=== PATIENT | female | born 1950 | race Caucasian/White ===

== ENCOUNTER 2022-10-04 11:56 | Day surgery (SDC) | payer BC, MEDICARE ==
[2022-09-26 12:08] LABS: BASOPHILS % (AUTO) 0.5 % (0-1); EOSINOPHILS % (AUTO) 0.7 % (0-6); LYMPHOCYTES # (AUTO) 1.3 X10'3 (1.1-4.8); LYMPHOCYTES % (AUTO) 21.8 % (21-51); MEAN CORPUSCULAR HEMOGLOBIN 30.6 PG (27.0-31.0); MEAN CORPUSCULAR HGB CONC 33.5 g/dL (33.0-36.5); MEAN CORPUSCULAR VOLUME 91.2 FL (78-98); MEAN PLATELET VOLUME 7.1 FL (7.4-10.4); MONOCYTES # (AUTO) 0.4 X10'3 (0-0.9); MONOCYTES % (AUTO) 6.2 % (2-12); NEUTROPHILS # (AUTO) 4.1 X10'3 (1.8-7.7); NEUTROPHILS % (AUTO) 70.8 % (42-75); PRE OP HEMATOCRIT 39.7 % (35.0-45.0); PRE OP HEMOGLOBIN 13.3 g/dL (12.0-16.0); PRE OP PLATELET COUNT 271 X10'3 (140-440); RED BLOOD COUNT 4.35 X10'6 (4.20-5.60); RED CELL DISTRIBUTION WIDTH 13.4 % (11.5-14.5)
[2022-09-26 12:14] LABS: CLARITY,URINE CLEAR (Clear); COLOR,URINE YELLOW (Yellow); GLUCOSE, URINE NEGATIVE (Neg); KETONES,URINE TRACE mg/dl (Neg); LEUKOCYTE ESTERASE ,URINE NEGATIVE (Neg); NITRITES, URINE NEGATIVE (Neg); OCCULT BLOOD,URINE TRACE-INTACT (Neg); PH,URINE 7.5 (4.8-8.0); PROTEIN,URINE NEGATIVE (Neg); UROBILINOGEN,URINE 0.2 E.U/dL (0.2-1.0)
[2022-09-26 12:16] LABS: UA COLLECTION TYPE CLN CATCH MIDSTREAM
[2022-09-26 12:24] LABS: BACTERIA,URINE FEW /HPF (Neg); MUCUS STRANDS NONE SEEN /LPF (Neg); RBC,URINE 0-2 /HPF (0-2); SQUAMOUS EPITHELIAL CELL,UR FEW /LPF (FEW); WBC,URINE 0-4 /HPF (0-4)
[2022-09-26 12:26] LABS: ALBUMIN 4.1 G/DL (3.4-5.0); ALBUMIN/GLOBULIN RATIO 1.1 (1.1-1.5); ALKALINE PHOSPHATASE 93 IU/L (46-116); BLOOD UREA NITROGEN 14 MG/DL (7-18); CHLORIDE 105 MMOL/L (99-107); CREATININE 0.56 MG/DL (0.40-0.90); PRE OP ALT 22 U/L (30-65); PRE OP ANION GAP 9 (8-16); PRE OP AST 20 U/L (10-37); PRE OP BILIRUB, TOTAL 0.4 MG/DL (0.0-1.0); PRE OP GLUCOSE 94 MG/DL (70-104); PRE OP POTASSIUM 3.8 MMOL/L (3.4-5.1); PRE OP SODIUM 141 MMOL/L (135-145); TOTAL CARBON DIOXIDE 27.1 MMOL/L (24-32); TOTAL PROTEIN 7.8 G/DL (6.4-8.2); eGFR > 90 ML/MIN
[2022-10-04] VITALS (12 sets, daily range): BP systolic 119–142; BP diastolic 67–95
[~2022-10-04] VITALS: Ht 160 cm; Wt 58.1 kg
[~2022-10-04 11:56] MED LIST: NO HOME MEDS; ceFOXitin 2GM-NS 100mL ADDvant 100 ML IV ONE; famotidine 20mg tablet PO ONE; ringers solution, lacted 1,000 ML IV SCH
[2022-10-04] MEDS ORDERED: BUPIVAcaine/PF 2.5mg/ml (0.25%) 10ml vial ONE (14:28)
[2022-10-04] MEDS ORDERED: fentaNYL/PF 50MCG/1 ML 2ML syringe ONE (14:34)
[2022-10-04] MEDS ORDERED: propofol inj 20 ML IV ONE (14:34)
[2022-10-04] MEDS ORDERED: rocuronium 10mg/ml inj IV ONE (14:34)
[2022-10-04] MEDS ORDERED: midazolam 1 mg/ML 2ml injection ONE (14:34)
[2022-10-04] MEDS ORDERED: ondansetron/PF 4mg/2ml inj IV PRN (14:35)
[2022-10-04] MEDS ORDERED: ringers solution, lacted 1,000 ML IV SCH (14:35)
[2022-10-04] MEDS ORDERED: morphine 4 MG/ML inj SYRINge IV PRN (14:35)
[2022-10-04] MEDS ORDERED: HYDROmorphone/PF 0.2 MG/ML SYRINGE IV PRN ×2 (14:35)
[2022-10-04] MEDS ORDERED: morphine 2 MG/ML inj. syringe IV PRN (14:35)
[2022-10-04] MEDS ORDERED: acetaminophen 1,000mg/100ml IV 100 ML IV PRN (14:35)
[2022-10-04] MEDS ORDERED: sevoflurane 250ml liquid IH ONE (14:38)
[2022-10-04] MEDS ORDERED: dexamethasone sod phosphate 4mg/ml inj. ONE (14:55)
[2022-10-04] MEDS ORDERED: BUPIVAcaine/PF 2.5 mg/ml (0.25%) 30ml vial IJ ONE (15:21)
[2022-10-04] MEDS ORDERED: ondansetron/PF 4mg/2ml inj ONE (16:04)
[2022-10-04] MEDS ORDERED: acetaminophen 1,000mg/100ml IV 100 ML IV ONE (16:06)
[2022-10-04] MEDS ORDERED: neostigmine methylsulfate 1 MG/ML 10ml vial ONE (16:13)
[2022-10-04] MEDS ORDERED: glycopyrrolate 0.2mg/ml inj ONE (16:13)
--- NOTE | 2022-10-04 16:28 | NUR ---
Received from OR via [facility] TO [facility], accompanied by Anesthesiologist DR HAWK and report given by Anesthesiolgist. PT PRESENTS WITH 20G LEFT HAND, SPO2 100% 6L MASK, LR RUNNING AT L100M LS/HR, ABD DRESSING DERMABREJI MONROY, VSS. Addendum: 10/04/22 at 1644 by Wendie De Jesus RN, RN Amended: Links added.
--- NOTE | 2022-10-04 18:18 | NUR ---
DC HOME: ALL DISCHARGE CRITERIA HAS BEEN MET. VSS, PAIN AT TOLERABLE LEVEL. ABLE TO SAFELY AMBULATE AND TRANSFER SELF. IV TAKEN OUT WITHOUT ANY COMPLICATIONS. ALL DISCHARGE INSTRUCTIONS COVERED WITH PATIENT AND ALL QUESTIONS ANSWERED. PATIENT TAKEN OUT VIA WHEELCHAIR TO PERSONAL VEHICLE WHERE FAMILY/FRIEND DROVE PATIENT HOME. Addendum: 10/04/22 at 1825 by Wendie De Jesus RN, RN Amended: Links added.
== END 2022-10-04 18:18 | disposition home or self-care (01) ==
LOC: PAS 11:56
PROVIDERS: ATTEND Obstetrics & Gynecology Obstetrics
DX: D27.1 Benign neoplasm of left ovary (principal); D27.0 Benign neoplasm of right ovary; M19.90 Unspecified osteoarthritis, unspecified site; Z88.8 Allergy status to other drugs, medicaments and biological substances; Z88.1 Allergy status to other antibiotic agents; Z79.899 Other long term (current) drug therapy; Z85.828 Personal history of other malignant neoplasm of skin; Z98.890 Other specified postprocedural states; Z90.710 Acquired absence of both cervix and uterus
CPT/HCPCS: 36415; 58661; 71046; 80053; 81001; 82948; 85025; 86885; 86900; 86901; J0131; J0694; J1100; J1170; J2250; J2405; J2704; J2710; J3010; J3490; J7030; J7120; Z7506; Z7508; Z7512; A4618; A7000